=== PATIENT | female | born 1955 | race African-American/Black ===

== ENCOUNTER 2019-06-20 15:21 | Emergency (ER) | payer MEDICAID ==
[~2019-06-20] VITALS: Ht 170.2 cm; Wt 77.0 kg
[2019-06-20] MEDS ORDERED: ONDANSETRON HCL 4MG/2ML INJ IV STA (17:53)
[2019-06-20] MEDS ORDERED: SODIUM CHLORIDE 0.9% 1,000 ML IV ONE (17:53)
[2019-06-20] MEDS ORDERED: MORPHINE SULFATE 4 MG/ML CPJ (NOT FOR IM USE) IV STA (17:53)
[2019-06-20 19:25] LABS: EOSINOPHILS % 2.9 % (0.0-5.0); HEMATOCRIT. 40.2 % (36.0-48.0); HEMOGLOBIN. 13.5 g/dL (12.0-16.0); LYMPHOCYTES % 25.4 % (20.0-50.0); MEAN CORPUSCULAR HEMOGLOBIN 31.3 pg (28.0-32.0); MEAN PLATELET VOLUME 8.3 fl (7.4-10.4); MONOCYTES % 8.9 % (2.0-8.0); NEUTROPHILS % 61.8 % (40.0-76.0); PLATELET 243 x1000/uL (130-400); RED BLOOD CELL COUNT 4.33 mill/uL (4.2-5.4); RED CELL DISTRIBUTION WIDTH 12.8 % (11.6-14.6)
[2019-06-20 19:33] LABS: CHLORIDE 109 mEq/L (98-107)
[2019-06-20 19:34] LABS: INR 1.1; PROTHROMBIN TIME 12.3 sec (9.6-11.0)
[2019-06-20] MEDS ORDERED: IOHEXOL-300 100 ML BOTTLE ONE (20:09)
[2019-06-20] MEDS ORDERED: KETOROLAC 30MG/ML VIAL IV ONE (22:00)
[2019-06-20] MEDS ORDERED: ONDANSETRON HCL 4MG/2ML INJ IV ONE (22:00)
[2019-06-20] MEDS ORDERED: MORPHINE SULFATE 2 MG/ML CPJ (NOT FOR IM USE) IV ONE (22:00)
[2019-06-20 23:36] VITALS: BP 146/66
== END 2019-06-20 23:48 | disposition home or self-care (01) ==
LOC: ER 15:21
DX: T14.90XA Injury, unspecified, initial encounter (principal); E11.9 Type 2 diabetes mellitus without complications; V43.92XA Unspecified car occupant injured in collision with other type car in traffic accident, initial encounter; Y93.89 Activity, other specified; Y92.89 Other specified places as the place of occurrence of the external cause; Y99.8 Other external cause status
CPT/HCPCS: 36415; 70450; 71045; 71260; 72125; 73030; 73110; 73562; 74177; 80053; 83690; 83880; 84484; 85025; 85610; 85730; 93005; 96374; 96375; 96376; 99285; J1885; J2270; J2405; J7030; Q9967